=== PATIENT | female | born 1950 | race Caucasian/White ===

== ENCOUNTER → 2016-12-30 | Outpatient (CLI) | payer MEDICARE, BC ==
[~2016-12-30] MED LIST: ABAT250V IV; ASPI325T70 PO; CHOL100013 PO; CRESTOR20 MG PO; INSU100I13 SQ; INSU100V SQ; LEVO125T5 PO; LOSA25TA4 PO; TRAM50TA PO
--- NOTE | 2016-12-30 10:50 | KCIC ---
MRI Cervical Spine Without Contrast History: Cervical stenosis, bilateral shoulder pain Technique: Multiplanar, multi sequential noncontrast MR imaging was performed of the cervical spine. Comparison: December 05, 2015 Findings: There is some motion degradation. Cervical vertebral body stature and AP alignment are maintained. There is again mild degenerative disc disease greater anteriorly at C6-7. Mild anterior C6-7 endplate edema is likely reactive/degenerative in etiology. There is a focus of T2 and STIR hyperintense abnormality of the visualized T4 vertebral body which was present previously, hemangioma favored. Cervical cord caliber is within normal limits without convincing focal signal abnormality allowing for artifact. There may be small mucous retention cysts versus air-fluid levels of the pterygoid aspects of the sphenoid sinus bilaterally. There is again T2 and STIR hyperintense abnormality of the visualized felicitas. There is again somewhat diffuse narrowing of the cervical spinal canal on a developmental basis. C2-C3: Central canal is narrowed to 8 to 9 mm on a developmental basis in combination with negligible posterior central protrusion. Neural foramina are adequate. C3-C4: There is again posterior bulge/protrusion with indentation upon the ventral thecal sac. Central canal is narrowed to approximately 7 mm. There is again mild buckling of the ligamentum flavum. Left neural foramen is adequate, mild narrowing of the right neural foramen due to mild facet and uncovertebral degenerative change. C4-C5: There is a minimal posterior bulge/protrusion. Central canal is again narrowed to approximately 6 mm with effacement of ventral and dorsal subarachnoid space as seen previously. There is again buckling of the ligamentum flavum. Neural foramina are not significantly narrowed. There is mild facet degenerative change. C5-C6: There is again minimal posterior bulge. Central canal is adequate on the order of 11 mm. There is mild left uncovertebral degenerative change. There is minimal narrowing of the proximal left neural foramen, right neural foramen overall adequate. C6-C7: There is again negligible disc osteophyte complex. Central canal is borderline 10 mm. There is minimal narrowing of the left neural foramen due to uncovertebral degenerative change, right neural foramen adequate. C7-T1: Spinal canal and neural foramina are adequate. Impression: 1. Findings are similar compared with November 2015 exam. There is again spinal stenosis on the order of 6 mm at C4-5 and to a somewhat lesser at C3-4, also minimally at C2-3 as described. 2. There is a mild degenerative disc disease C6-7, mild endplate edema anteriorly at this level likely reactive/degenerative in etiology. 3. There is minimal neural foramina compromise as stated. 4. T2 and STIR hyperintense abnormality of the visualized felicitas is nonspecific, may be due to chronic microvascular ischemic disease. 5. Signal abnormality of the visualized pterygoid aspects of the sphenoid sinus bilaterally may be due to mucus retention cysts although air-fluid levels possible which could be seen with acute sinusitis. Electronically signed by: Can Guadarrama MD (12/30/2016 10:47 AM) [id number]
== END | disposition home or self-care (01) ==
LOC: KCIC MRI 09:14
PROVIDERS: ATTEND Neurological Surgery
DX: M50.323 Other cervical disc degeneration at C6-C7 level (principal)
CPT/HCPCS: 72141

== ENCOUNTER → 2018-12-22 | Outpatient (CLI) | payer MEDICARE, BC ==
[~2018-12-22] MED LIST changes: -LOSA25TA4 PO; +LOSA25TA54 PO
--- NOTE | 2018-12-22 11:05 | KCIC ---
MRI Cervical Spine Without Contrast History: Cervical stenosis Technique: Multiplanar, multi sequential noncontrast MR imaging was performed of the cervical spine. Comparison: December 30, 2016 Findings: There is some motion degradation. Cervical vertebral body stature and AP alignment are maintained. Cervical cord is not expanded, somewhat limited accurate evaluation for subtle signal change due to motion artifact especially near levels of spinal stenosis, no expansile signal abnormality. There is again focus of marrow signal abnormality of the T4 vertebral body not fully included, likely a hemangioma. There is mild C6-7 endplate edema anteriorly as seen previously likely reactive/degenerative in etiology. There is [id number]-ax-[id number] degenerative disc disease greater anteriorly at C6-7. AP alignment is within normal limits. Cervical vertebral body stature is unchanged. There is again T2 and STIR hyperintense abnormality of the visualized felicitas. There is again somewhat diffuse narrowing of the cervical spinal canal on a developmental basis. C2-C3: There is buckling of the ligamentum flavum. Central canal is narrowed again narrowed about 8 to 9 mm AP on developmental basis. Neural foramina are adequate. C3-C4: There is buckling of the ligamentum flavum. There is disc osteophyte complex and bulge/protrusion, indentation upon the ventral thecal sac. Central canal is narrowed to about 5 mm which is somewhat greater as previously about 7 mm. There is again mild narrowing of the right neural foramen due to facet and uncovertebral degenerative change, left neural foramen overall adequate. C4-C5: There is again buckling of the ligamentum flavum, slightly increased. There is again shallow posterior protrusion, central canal narrowed to about 5-6 mm as seen previously, effacement of ventral and dorsal subarachnoid space. There is facet degenerative change bilaterally. Neural foramina are not significantly narrowed. C5-C6: There is buckling of the ligamentum flavum, greater in interval. There is negligible posterior central protrusion. Central canal is now narrowed about 7 mm as measured on sagittal images. There is facet degenerative change. There is probable mild narrowing of the neural foramina greater on the left. C6-C7: There is again negligible disc osteophyte complex. Central canal is borderline about 10 mm. There is left uncovertebral degenerative change, again at least mild narrowing of the left neural foramen although somewhat difficult to accurately quantify due to motion. Right neural foramen is adequate. C7-T1: Neural foramina and spinal canal are adequate. Impression: 1. There is again degree of diffuse cervical spinal stenosis on a developmental basis, additional narrowing as described. There is central canal stenosis on the order of 5 mm at C3-4 and to a somewhat lesser degree at C4-5, about 7 mm at C5-6, and minimally at C2-3. There is increased spinal stenosis at C5-6 due to more prominent buckling of the ligamentum flavum, also somewhat more prominent at C4-5 in the interval. There is facet and uncovertebral degenerative change, likely mild narrowing of the right C3-4 and bilateral C5-6 neural foramina, also at least mild narrowing of the left at C6-7. There is [id number] degenerative disc disease C6-7. 2. There is again signal abnormality of the visualized felicitas, nonspecific findings which could be due to chronic microvascular ischemic disease. Electronically signed by: Can Guadarrama MD (12/22/2018 11:02 AM) [facility]
== END | disposition home or self-care (01) ==
LOC: KCIC MRI 09:10
PROVIDERS: ATTEND Neurological Surgery
DX: M47.812 Spondylosis without myelopathy or radiculopathy, cervical region (principal); M50.323 Other cervical disc degeneration at C6-C7 level; M50.222 Other cervical disc displacement at C5-C6 level; M48.02 Spinal stenosis, cervical region; M25.78 Osteophyte, vertebrae
CPT/HCPCS: 72141

== ENCOUNTER → 2020-01-04 | Outpatient (CLI) | payer MEDICARE, BC ==
[2019-08-17 11:59] VITALS: BP 165/57
[~2020-01-04] MED LIST changes: -ABAT250V IV; +ABAT250V2 IV; +ATOR80TA72 PO; +CEFD300C PO; -INSU100V SQ; +INSU100V6 SQ; +INSU100V8 SQ; +METO25TA4 PO
--- NOTE | 2020-01-04 12:19 | KCIC ---
EXAM: Cervical spine MRI without contrast. HISTORY: Cervical stenosis. TECHNIQUE: Multiplanar, multisequence magnetic resonance imaging of the cervical spine was performed without contrast. COMPARISON: 12/22/2018 FINDINGS: There is levocurvature of the spine centered at the cervical thoracic junction and there is a slight right inferior lateral head tilt. There is minimal anterolisthesis of C6 on C7. There is no suspicious osseous lesion or acute or subacute fracture. There is multilevel endplate remodeling and facet arthropathy, described in detail below. There is deformation of the cervical spine at multiple levels due to central canal stenosis. No spinal cord signal abnormality is seen. No suspicious osseous lesion is seen. There is T2 hyperintensity within the cerebral white matter, cerebellum and felicitas, not formally assessed on this exam. At C2-C3, there is mild bilateral facet arthropathy. There is moderate central canal stenosis measuring 7.5 mm in anterior posterior dimension. At C3-C4, there is endplate remodeling. There is moderate bilateral facet arthropathy. There is mild right and moderate left foraminal stenosis. There is severe central canal stenosis measuring 6.1 mm in anterior posterior dimension. At C4-C5, there is a disc bulge and endplate remodeling. There is moderate bilateral facet arthropathy. There is [id number] left foraminal stenosis. There is severe central canal stenosis measuring 6.6 mm in anterior posterior dimension. At C5-C6, there is a minimal shallow posterior central disc protrusion. There is mild bilateral facet arthropathy. There is mild central canal stenosis measuring 8.0 mm in anterior posterior dimension. At C6-C7, there is a disc bulge. There is to moderate right facet arthropathy. There is mild left foraminal stenosis. There is mild central canal stenosis measuring 7.4 mm in anteroposterior dimension. IMPRESSION: 1. Multilevel degenerative change involving the cervical spine, described in detail above. 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 These findings are not significant changed compared to the prior exam. There is deformation of the cervical spinal cord at multiple levels, without convincing spinal cord signal abnormality to suggest edema, demyelination or myelomalacia. 2. Cervical thoracic levocurvature and right inferior lateral head tilt. 3. T2 hyperintensity within the cerebral white matter, felicitas and cerebellum, the latter which is new compared to the prior exam. This may be due to significant interval progression of chronic small vessel disease, demyelination or changes related to prior radiation therapy. This can be better assessed with a brain MRI. Electronically signed by: Lisy Toth MD (01/04/2020 12:16 PM) [id number]
== END ==
LOC: KCIC MRI 10:51
PROVIDERS: ATTEND Neurological Surgery
DX: M47.812 Spondylosis without myelopathy or radiculopathy, cervical region (principal); M48.02 Spinal stenosis, cervical region
CPT/HCPCS: 72141

== ENCOUNTER → 2021-02-01 | Outpatient (CLI) | payer MEDICARE, BC ==
[2019-08-17 11:59] VITALS: BP 165/57
--- NOTE | 2021-02-01 14:24 | KCIC ---
MR CERVICAL SPINE WO DATE: 02/01/2021 10:20 AM INDICATION: CERVICAL STENOSIS. Some neck pain. TECHNIQUE: Multiplanar multisequence magnetic resonance imaging of the cervical spine was performed w ithout administration of intravenous contrast using the standard cervical spine protocol. COMPARISON: 01/04/2020. FINDINGS: Motion artifact grades image quality on some sequences. The cervical spine is normally aligned. No acute fracture. Moderate multilevel degenerative disc reid iccation and disc height loss. Trace degenerative endplate edema at C6-7. The spinal cord is normal in signal intensity. On patchy T2 hyperintensity in the felicitas, consistent with chronic small vessel ischemic disease. No Ch iari malformation. No soft tissue abnormality. Normal signal voids are present in the vertebral arteries. C2-3: Moderate spinal canal stenosis. No significant neural foraminal narrowing. C3-4: Disc osteophyte complex. Uncovertebral hypertrophy. Mild facet arthropathy. Severe spinal canal stenosis with AP dimension 6 mm. Mild to moderate neural foraminal narrowing, although poorly evalua kenny. C4-5: Disc osteophyte complex. Uncovertebral hypertrophy. Mild facet arthropathy. Severe spinal canal stenosis with AP dimension 6 mm. Mild right and moderate left neural foraminal narrowing. C5-6: Disc osteophyte complex. Uncovertebral hypertrophy. Mild facet arthropathy. Mild spinal canal s tenosis. Moderate neural foraminal narrowing. C6-7: Disc osteophyte complex. Uncovertebral hypertrophy. Mild spinal canal stenosis. Mild right and moderate left neural foraminal narrowing. C7-T1: No significant spinal canal stenosis or neural foraminal narrowing. IMPRESSION: Advanced cervical spondylosis, not progressed from the prior. Electronically signed by: Can Nugent MD (02/01/2021 2:22 PM) [facility]
== END ==
LOC: KCIC MRI 09:45
PROVIDERS: ATTEND Neurological Surgery
DX: M47.892 Other spondylosis, cervical region (principal); M48.02 Spinal stenosis, cervical region; M25.78 Osteophyte, vertebrae; M48.8X2 Other specified spondylopathies, cervical region
CPT/HCPCS: 72141